=== PATIENT | female | born 1950 | race Caucasian/White ===

== ENCOUNTER 2016-08-29 06:48 | Emergency (ER) | payer OTHER ==
[~2016-08-29] VITALS: Ht 185.4 cm; Wt 75.8 kg
[~2016-08-29 06:48] MED LIST: ACIDOPHILUS1 EAC4 PO; APAP500 PO; CAYENNE450 MG PO; CIPRO500 M1 PO; CLARITIN10 MG PO; CURCUMIN1 GM PO; FLAGYL500 MG PO; FLONASE 0.05%50 MCG NASAL; GARLIC1 EACH PO; HYDROCODON-ACE1 EAC7 PO; MAG-AL PLUS SUS30 ML PO; MELATIN3 MG PO; MELATONIN1 MG PO; MSM1000 MG PO; MULTIVITAMINS1 EAC7 PO; NORCO 5-325 TA1 EACH PO; PROBIOTIC1 EAC1 PO; PROTONIX40 M4 PO; REGLAN 5 MG TAB5 MG PO; SUDAFED 24-HOU240 MG PO; VITAMIN B COMP1 EACH PO; VITAMIN C1000 MG PO; ZOFRAN ODT4 MG DISSOLVE; [UNRECOGNIZED DRUG - OTHER] NASAL
[2016-08-29] MEDS ORDERED: TRAMADOL 50 MG50 MG PO (06:54)
[2016-08-29] MEDS ORDERED: NORCO 5-325 TA1 EACH PO (09:08)
== END 2016-08-29 09:35 | disposition home or self-care (01) ==
LOC: ER 06:48
DX: S52.501A Unspecified fracture of the lower end of right radius, initial encounter for closed fracture (principal); Z88.0 Allergy status to penicillin; Z88.1 Allergy status to other antibiotic agents; W00.1XXA Fall from stairs and steps due to ice and snow, initial encounter; Y93.9 Activity, unspecified; Y92.9 Unspecified place or not applicable; Y99.9 Unspecified external cause status

== ENCOUNTER → 2016-12-03 | Outpatient (CLI) | payer OTHER ==
[~2016-12-03] MED LIST changes: +TRAMADOL 50 MG50 MG PO
== END ==
LOC: ULTRA 14:55
DX: N13.30 Unspecified hydronephrosis (principal)

== ENCOUNTER 2017-03-14 20:44 | Inpatient (IN) | payer OTHER ==
[~2017-03-14] VITALS: Ht 185.4 cm; Wt 81.6 kg
--- NOTE | ~2017-03-14 | HC ---
[facility] [place] [address] CONSULTATION Name: DONTRELL GRAF Room #: 426-P ADM IN M.R.#: [id number] Admission: 03/14/17 Attend Phys: Romeo Cabral MD Discharge: Date of : 54 Report #: [id number] THIS REPORT FOR: //name// CC: Romeo LEOS The patient is well known to me from prior surgery being admitted for abdominal pain and possible bowel obstruction. HISTORY OF PRESENT ILLNESS: The patient is a 66-year-old who was doing well until night of admission on 03/14/2017. The patient developed acute onset of pain in the evening. This came on fairly soon after eating salad. Her grandfather also has been having abdominal problem with nausea and vomiting. The patient had a crampy pain, then vomited in the Emergency Room. The patient denies any fevers or chills and no difficulty urinating. The patient had a CT performed that suggested either partial or early bowel obstruction. The patient's white count is normal, ____ amylase is normal, liver function is normal, lactic acid is normal. The patient did have a complicated diverticulitis about a year ago that required colostomy. The patient had a large very bad inflammatory mass, which I thought at the time of surgery was tumor, but ended up being severe diverticulitis, this was in February. The patient's ____ ureter was aspirated during surgery and had to be repaired. The patient had a colostomy. Subsequently, the patient did have her colostomy closed with laparoscopic-assisted technique in July. She says she has been doing really well, no issues at all until night of admission. I reviewed the CT scan. PHYSICAL EXAMINATION: The patient does have moderate abdominal distention. She is not in acute distress. Abdomen has increased bowel sounds. NG tube is in place. Very rare bowel sounds. Abdominal scar without evidence of any hernia. No diffuse guarding, rigidity. IMPRESSION: The patient is a 66-year-old who is well known to me. She developed pain last night. This could be early bowel obstruction. There is family member who is sick and makes me kind of wonder if she has enteritis. ____ the obstruction is from adhesions or may be from bolus of food, it is difficult to determine. I do not see any bowel twisting on the CT scan. I do not think she has any compromised bowel. PLAN: I agree with the IV fluid, NG tube, and closed monitoring. We will order another KUB in the morning. Hoping that she does not have to have any surgery, I would give here time to see if this will resolve. By: 06 39 Casper Aceves MD /nt
--- NOTE | ~2017-03-14 | O ---
[facility] [place] [address] OPERATIVE REPORT Name: DONTRELL GRAF Room #: 426-P ADM IN M.R.#: [id number] Admission: 03/14/17 Attend Phys: Romeo Cabral MD Discharge: Date of : 54 Report #: [id number] THIS REPORT FOR: //name// CC: Romeo LEOS DATE OF SERVICE: 03/18/2017 PREOPERATIVE DIAGNOSIS: Small-bowel obstruction likely adhesion. POSTOPERATIVE DIAGNOSIS: Small-bowel obstruction secondary obstructing adhesive band in the right mid to upper abdomen. PROCEDURES PERFORMED: Laparoscopic lysis of adhesive band and release of small-bowel obstruction. SURGEON: Casper Aceves M.D. ANESTHESIA: General anesthesia. COMPLICATIONS: None. ESTIMATED BLOOD LOSS: 5 mL. DESCRIPTION OF PROCEDURE: With the patient under general anesthesia, a Heredia catheter was placed. Abdomen was prepped and draped in sterile fashion. The patient has a small laparoscopic cutdown port site just above the umbilicus decided to stay away from there made at just a little bit below the umbilicus on the right side. The reason is because of her severe diverticulitis and I was wanting to avoid the left abdomen. Actually, when I got down through the anterior fascia, rectus fascia was identified. This was opened, 0 Vicryl suture placed for retraction, muscle was spread. The posterior fascia was identified, grasped with hemostat and then opened. It was difficult to tell where the peritoneum was. There is a small abdominal fluid present. The posterior fascia was also sutured with 0 Vicryl. I decided to go ahead and put the scope through the opening and there was adhesion around this area inferior to it. There was adhesion superior to this adhesion but on the left side, the abdomen was actually fairly free. Two 5 mm trocars were then placed under visualization on the left side and a 5 mm scope was then used to look at the original port site where I could see the adhesive band to the small bowel. The bowel adhesion was divided. Superior band and also inferior adhesion was divided. Omentum was still stuck and there was still some fat adhesion inferiorly, which I left alone. Almost immediately, I can see that the bowel is tapering and being pinched and stuck down in the right side of the abdomen as the CT scan suggested when I reviewed with Dr. Finley. Looks like the site of transition and this was identified and noted to be true. There was a band that was adhesed here. [facility] [address] [place] [address] OPERATIVE REPORT Name: DONTRELL GRAF Room #: 426-P ADM IN M.R.#: [id number] Admission: 03/14/17 Attend Phys: Romeo Cabral MD Discharge: Date of : 54 Report #: [id number] one part of the band actually just inflammatory and was able to be free. The other side of the band was pretty stuck to the bowel. There was a segment of bowel that was pinched by this. Initially, this looked somewhat pale and this bowel was adhesed to another bowel that was more distal and I had to free this obstructed segment from the other one, so I can see the back side where the back side, the part that was not compromised by the band directly and when I lifted that part, the bowel was pretty healthy and did not have the impression that the other side did. With time, the bowel that was pale, also pinked up and I could see good active peristalsis distal to this area. Also further downstream, I could see the bowel moving around well and there is moderate adhesions down lower where the bowel to bowel adhesions, but the bowel and I did not see any further bands stuck anywhere. The irrigation was performed. There is a small amount of fluid in the abdomen by the liver. This was suctioned out. Minimal blood loss 5 mL at the most. The adhesive band that was divided was visualized and from the first part of the surgery and that looks fine, no bleeding and no injury of the bowel identified. CO2 was evacuated and trocars removed. The posterior sheath at the cutdown site was closed with 0 [id number]-[id number] x1. The anterior fascia was closed with [id number] 0 Vicryl x2. Skin was irrigated. Skin was closed with 5-0 PDS. By: 2214 Casper Aceves MD /nt
--- NOTE | ~2017-03-14 | EKG ---
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 : 1950 Requested By: Jena Bella Order Number: [id number] MD: Kunal Florence Measurements Intervals [place] Rate: 63 P: 30 VA: 228 QRS: -18 QRSD: 97 T: 61 QT: 421 QTc: 431 Interpretive Statements Sinus rhythm Prolonged VA interval Borderline left axis deviation Abnormal R-wave progression, early transition Compared to ECG 07/27/2016 08:13:45 First degree AV block now present Electronically Signed On 03-15-2017 8:56:54 CDT by Kunal Florence [email or web address] <ELECTRONICALLY SIGNED> By: Kunal Florence MD, FACC 03/15/17 0856 55 55 Kunal Florence MD, [facility] /EPI
[2017-03-14 21:44] LABS: ANION GAP 9 mmol/L (7-16); BUN 22 mg/dL (7-18); CALCIUM 9.3 mg/dL (8.5-10.1); CHLORIDE 103 mmol/L (98-107); CO2 27 mmol/L (21-32); CREATININE 0.9 mg/dL (0.6-1.0); GLUCOSE 115 mg/dL (74-106); POTASSIUM 4.5 mmol/L (3.5-5.1); SODIUM 139 mmol/L (136-145)
[2017-03-14 21:47] LABS: ABSOLUTE NEUTROPHILS 4.3 thou/uL (1.4-8.2); BASOPHILS 0.9 % (0.0-2.0); HEMATOCRIT 40.9 % (37.0-47.0); HEMOGLOBIN 13.9 gm/dL (12.0-15.0); LYMPHOCYTES 44.5 % (24.0-44.0); MCH 31.6 pg (26.0-34.0); MCV 92.9 fL (80.0-100.0); MONOCYTES 10.3 % (1.0-8.0); PLATELET COUNT 283 thou/uL (150-400); POLYS 42.3 % (36.0-66.0); RDW 13.5 % (10.5-14.5); WBC 10.3 thou/uL (4.0-11.0)
[2017-03-14 21:49] LABS: MANUAL DIFF NO
[2017-03-14 21:57] LABS: ALBUMIN 3.9 g/dL (3.4-5.0); ALKALINE PHOSPHATASE 87 U/L (46-116); DIRECT BILIRUBIN < 0.1 mg/dL (<0.1-0.3); SGOT 23 U/L (15-37); SGPT 36 U/L (30-65); TOTAL BILIRUBIN 0.3 mg/dL (<0.1-1.0); TOTAL PROTEIN 7.5 g/dL (6.4-8.2)
[2017-03-14 23:41] LABS: URINE BILIRUBIN NEGATIVE (Negative); URINE BLOOD TRACE (Negative); URINE COLOR YELLOW; URINE GLUCOSE-RANDOM* NEGATIVE (Negative); URINE KETONES NEGATIVE (Negative); URINE LEUKOCYTES-REFLEX TRACE (Negative); URINE PROTEIN (DIPSTICK) NEGATIVE (Negative); URINE SPECIFIC GRAVITY <= 1.005 (1.003-1.035); URINE UROBILINOGEN 0.2 E.U./dl (0.2-1.0)
[2017-03-15] VITALS: BP 115/66
[2017-03-15 00:30] VITALS: BP 130/80
[2017-03-15 02:50] VITALS: BP 159/94
[2017-03-15 10:01] VITALS: BP 131/77
[2017-03-15 16:17] VITALS: BP 140/85
[2017-03-15 20:55] VITALS: BP 109/64
[2017-03-16 04:10] VITALS: BP 131/79
[2017-03-16 06:55] LABS: HEMATOCRIT 37.1 % (37.0-47.0); HEMOGLOBIN 12.6 gm/dL (12.0-15.0); MCHC 34.1 g/dL (28.0-37.0); PLATELET COUNT 210 thou/uL (150-400); RBC 3.95 mil/uL (4.20-5.00); RDW 13.5 % (10.5-14.5); WBC 6.2 thou/uL (4.0-11.0)
[2017-03-16 06:57] LABS: MANUAL DIFF YES
[2017-03-16 07:13] LABS: ALBUMIN 3.3 g/dL (3.4-5.0); CALCIUM 8.4 mg/dL (8.5-10.1); CREATININE 0.8 mg/dL (0.6-1.0); POTASSIUM 4.1 mmol/L (3.5-5.1); TOTAL BILIRUBIN 0.7 mg/dL (<0.1-1.0); TOTAL PROTEIN 6.7 g/dL (6.4-8.2)
[2017-03-16 07:48] VITALS: BP 107/65
[2017-03-16 08:20] LABS: TOTAL CELL COUNT 100
[2017-03-16 16:45] VITALS: BP 131/83
[2017-03-16 19:57] VITALS: BP 131/89
[2017-03-17 04:07] VITALS: BP 110/59
[2017-03-17 06:25] LABS: HEMATOCRIT 34.7 % (37.0-47.0); HEMOGLOBIN 12.1 gm/dL (12.0-15.0); MCH 32.3 pg (26.0-34.0); MCV 92.3 fL (80.0-100.0); RBC 3.75 mil/uL (4.20-5.00)
[2017-03-17 06:34] LABS: CREATININE 0.6 mg/dL (0.6-1.0); POTASSIUM 3.5 mmol/L (3.5-5.1)
[2017-03-17 07:58] VITALS: BP 123/65
[2017-03-17 16:36] VITALS: BP 118/52
[2017-03-17 19:36] VITALS: BP 125/74
[2017-03-18 03:33] VITALS: BP 116/73
[2017-03-18 07:44] VITALS: BP 142/80
[2017-03-18 14:11] LABS: URINE BILIRUBIN 1+ (Negative); URINE BLOOD NEGATIVE (Negative); URINE COLOR YELLOW; URINE GLUCOSE-RANDOM* NEGATIVE (Negative); URINE KETONES TRACE (Negative); URINE NITRITE NEGATIVE (Negative); URINE PROTEIN (DIPSTICK) 2+ (Negative)
[2017-03-18 14:18] LABS: CASTS None Seen /LPF (None Seen); CRYSTALS None Seen /LPF (None Seen); ICTOTEST (BILI CONFIRMATORY) Negative (Negative); SQUAMOUS 0-3 Few /LPF (0-3)
[2017-03-18 14:19] LABS: URINE RBC 0-2 Rare /HPF (0-2)
[2017-03-18 21:36] VITALS: BP 103/64
[2017-03-18 21:51] VITALS: BP 98/62
[2017-03-18 22:06] VITALS: BP 93/60
[2017-03-18 23:29] VITALS: BP 100/66
[2017-03-19 03:30] VITALS: BP 94/51
[2017-03-19 05:43] LABS: HEMATOCRIT 33.8 % (37.0-47.0); HEMOGLOBIN 11.7 gm/dL (12.0-15.0); MCH 32.2 pg (26.0-34.0); MCHC 34.6 g/dL (28.0-37.0); MCV 92.9 fL (80.0-100.0); RBC 3.64 mil/uL (4.20-5.00); WBC 4.7 thou/uL (4.0-11.0)
[2017-03-19 06:05] LABS: ALBUMIN 2.7 g/dL (3.4-5.0); CREATININE 0.7 mg/dL (0.6-1.0); PHOSPHORUS 3.3 mg/dL (2.5-4.9); POTASSIUM 3.9 mmol/L (3.5-5.1); TOTAL BILIRUBIN 0.4 mg/dL (<0.1-1.0); TOTAL PROTEIN 6.4 g/dL (6.4-8.2)
[2017-03-19 07:52] VITALS: BP 103/67
[2017-03-19 15:44] VITALS: BP 94/64
[2017-03-19 20:09] VITALS: BP 121/76
[2017-03-20 04:00] VITALS: BP 96/65
[2017-03-20 04:09] LABS: ALBUMIN 2.7 g/dL (3.4-5.0); CALCIUM 8.1 mg/dL (8.5-10.1); CREATININE 0.5 mg/dL (0.6-1.0); POTASSIUM 3.5 mmol/L (3.5-5.1); TOTAL BILIRUBIN 0.2 mg/dL (<0.1-1.0)
[2017-03-20 04:11] LABS: PHOSPHORUS 3.1 mg/dL (2.5-4.9)
[2017-03-20 04:22] LABS: HEMATOCRIT 33.2 % (37.0-47.0); HEMOGLOBIN 11.4 gm/dL (12.0-15.0); MCH 32.2 pg (26.0-34.0); MCHC 34.3 g/dL (28.0-37.0); MCV 93.8 fL (80.0-100.0); PLATELET COUNT 199 thou/uL (150-400); RBC 3.54 mil/uL (4.20-5.00); WBC 5.4 thou/uL (4.0-11.0)
[2017-03-20 04:30] LABS: MANUAL DIFF YES
[2017-03-20 05:45] LABS: ABSOLUTE NEUTROPHILS 2.1 thou/uL (1.4-8.2); ANISOCYTOSIS SLIGHT; ATYPICAL LYMPHS 1 %; LARGE PLATELETS OCCASIONAL; TOTAL CELL COUNT 100
[2017-03-20 10:06] VITALS: BP 99/65
[2017-03-20 16:45] VITALS: BP 109/73
[2017-03-20 19:48] VITALS: BP 135/86
[2017-03-21 04:26] VITALS: BP 108/65
[2017-03-21 05:32] LABS: HEMATOCRIT 36.4 % (37.0-47.0); HEMOGLOBIN 12.4 gm/dL (12.0-15.0); MCH 31.5 pg (26.0-34.0); MCHC 34.1 g/dL (28.0-37.0); MCV 92.5 fL (80.0-100.0); RBC 3.94 mil/uL (4.20-5.00); RDW 12.9 % (10.5-14.5); WBC 7.3 thou/uL (4.0-11.0)
[2017-03-21 05:43] LABS: CALCIUM 8.8 mg/dL (8.5-10.1); CREATININE 0.6 mg/dL (0.6-1.0); PHOSPHORUS 3.9 mg/dL (2.5-4.9); POTASSIUM 3.7 mmol/L (3.5-5.1)
[2017-03-21 08:38] VITALS: BP 114/66
[2017-03-21 14:52] VITALS: BP 114/66
== END 2017-03-21 15:40 | disposition home or self-care (01) | DRG 336 ==
LOC: ER 20:44 → 4E 23:40 → EROBS 23:40 → 4E 03-15 00:07
PROVIDERS: Emergency Medicine; Family Medicine; Nurse Practitioner; Surgery
PROC: 3E0336Z Introduction of Nutritional Substance into Peripheral Vein, Percutaneous Approach (ICD-10-PCS; 2017-03-15)
PROC: 0DN84ZZ Release Small Intestine, Percutaneous Endoscopic Approach (ICD-10-PCS; principal; 2017-03-18)
DX: K56.5 Intestinal adhesions [bands] with obstruction (postinfection) (principal); E44.1 Mild protein-calorie malnutrition; N39.0 Urinary tract infection, site not specified; K57.90 Diverticulosis of intestine, part unspecified, without perforation or abscess without bleeding; Z90.49 Acquired absence of other specified parts of digestive tract; Z88.0 Allergy status to penicillin; Z88.1 Allergy status to other antibiotic agents; Z87.442 Personal history of urinary calculi; Z68.23 Body mass index [BMI] 23.0-23.9, adult; Z88.8 Allergy status to other drugs, medicaments and biological substances
CPT/HCPCS: 10084; 27000; 50101; 50249; 50411; 50455; 50555; 51489; 53065; 53307; 56462; 56526; 62110; 62900; 70005

== ENCOUNTER → 2017-10-24 | Outpatient (CLI) | payer OTHER | LOC: RAD 10:46 | DX: Z12.31 Encounter for screening mammogram for malignant neoplasm of breast (principal) ==

== ENCOUNTER → 2017-11-02 | Outpatient (CLI) | payer OTHER | LOC: RAD 01:16 | DX: N60.02 Solitary cyst of left breast (principal); R92.8 Other abnormal and inconclusive findings on diagnostic imaging of breast ==

== ENCOUNTER → 2018-11-13 | Outpatient (CLI) | payer OTHER | LOC: RAD 03:54 → BC 03:54 | DX: Z12.31 Encounter for screening mammogram for malignant neoplasm of breast (principal); M81.0 Age-related osteoporosis without current pathological fracture; M85.89 Other specified disorders of bone density and structure, multiple sites ==

== ENCOUNTER 2021-07-14 17:31 | Emergency (ER) | payer OTHER, MEDICARE ==
[~2021-07-14] VITALS: Ht 185.4 cm; Wt 81.7 kg
[2021-07-14 18:34] LABS: URINE BILIRUBIN NEGATIVE (Negative); URINE BLOOD TRACE (Negative); URINE CLARITY CLEAR; URINE COLOR YELLOW; URINE GLUCOSE-RANDOM* NEGATIVE (Negative); URINE KETONES NEGATIVE (Negative); URINE NITRITE-REFLEX NEGATIVE (Negative); URINE PROTEIN (DIPSTICK) NEGATIVE (Negative); URINE UROBILINOGEN 0.2 E.U./dl (0.2-1.0)
[2021-07-14 18:36] LABS: URINE LEUKOCYTES-REFLEX 3+ (Negative)
[2021-07-14 18:44] LABS: BACTERIA-REFLEX >30 Many /HPF (None Seen); CASTS None Seen /LPF (None Seen); CRYSTALS None Seen /LPF (None Seen); SQUAMOUS 4-10 Moderate /LPF (0-3); URINE RBC 1-2 Rare /HPF (NONE SEEN); URINE WBC-REFLEX >25 Many /HPF (0-5)
[2021-07-14 19:02] LABS: ABSOLUTE NEUTROPHILS 3.4 thou/uL (1.4-8.2); BASOPHILS 0.9 % (0.0-2.0); EOSINOPHILS 2.4 % (0.0-3.0); HEMATOCRIT 41.7 % (37.0-47.0); HEMOGLOBIN 14.1 gm/dL (12.0-15.0); LYMPHOCYTES 28.3 % (24.0-44.0); MCH 31.3 pg (26.0-34.0); MCHC 33.9 g/dL (28.0-37.0); MCV 92.4 fL (80.0-100.0); PLATELET COUNT 240 thou/uL (150-400); POLYS 56.4 % (36.0-66.0); RBC 4.52 mil/uL (4.20-5.00); RDW 13.1 % (10.5-14.5)
[2021-07-14 19:20] LABS: CALCIUM 8.9 mg/dL (8.5-10.1); CREATININE 0.8 mg/dL (0.6-1.0)
[2021-07-14] MEDS ORDERED: CYCLOBENZAPRINE5 MG PO (19:20)
[2021-07-14] MEDS ORDERED: ALLEGRA ALLERGY60 MG PO (19:20)
[2021-07-14] MEDS ORDERED: APAP W/CODEINE1 TA2 PO (19:38)
[2021-07-14] MEDS ORDERED: MACROBID 100 M100 M1 PO (19:38)
[2021-07-14 20:17] VITALS: BP 140/90
== END 2021-07-14 20:19 | disposition home or self-care (01) ==
LOC: ER 17:31
PROVIDERS: Emergency Medicine
DX: N39.0 Urinary tract infection, site not specified (principal); R10.12 Left upper quadrant pain; Z86.718 Personal history of other venous thrombosis and embolism; Z87.442 Personal history of urinary calculi; Z98.890 Other specified postprocedural states; Z79.899 Other long term (current) drug therapy; Z88.0 Allergy status to penicillin; Z88.5 Allergy status to narcotic agent; Z88.6 Allergy status to analgesic agent

== ENCOUNTER 2021-07-24 11:20 | Emergency (ER) | payer OTHER, MEDICARE ==
[~2021-07-24] VITALS: Ht 185.4 cm; Wt 81.7 kg
[~2021-07-24 11:20] MED LIST changes: +ALLEGRA ALLERGY60 MG PO; +APAP W/CODEINE1 TA2 PO; +CYCLOBENZAPRINE5 MG PO; +MACROBID 100 M100 M1 PO
[2021-07-24 11:25] VITALS: BP 126/69
[2021-07-24 12:30] LABS: URINE BILIRUBIN NEGATIVE (Negative); URINE BLOOD 1+ (Negative); URINE CLARITY CLOUDY; URINE COLOR YELLOW; URINE GLUCOSE-RANDOM* NEGATIVE (Negative); URINE KETONES NEGATIVE (Negative); URINE PROTEIN (DIPSTICK) NEGATIVE (Negative); URINE SPECIFIC GRAVITY 1.015 (1.005-1.035); URINE UROBILINOGEN 0.2 E.U./dl (0.2-1.0)
[2021-07-24 12:33] LABS: URINE LEUKOCYTES-REFLEX 3+ (Negative); URINE NITRITE-REFLEX POSITIVE (Negative)
[2021-07-24 12:36] LABS: CALCIUM 8.4 mg/dL (8.5-10.1); CREATININE 0.8 mg/dL (0.6-1.0); POTASSIUM 3.8 mmol/L (3.5-5.1)
[2021-07-24 12:44] LABS: ALBUMIN 3.5 g/dL (3.4-5.0); TOTAL BILIRUBIN 0.3 mg/dL (0.2-1.0); TOTAL PROTEIN 7.4 g/dL (6.4-8.2)
[2021-07-24] MEDS ORDERED: TESSALON PERLE100 MG PO (13:13)
[2021-07-24] MEDS ORDERED: MACROBID 100 M100 M1 PO (13:13)
[2021-07-24] MEDS ORDERED: MEDROLDOSEPACK PO (13:13)
[2021-07-24] MEDS ORDERED: PROAIR HFA8.5 GM INH (13:18)
[2021-07-24] MEDS ORDERED: ACCUNEB SO1.25 MG/1 INH (13:18)
[2021-07-24 13:28] LABS: CASTS None Seen /LPF (None Seen); SQUAMOUS 0-3 Few /LPF (0-3)
[2021-07-24 13:29] LABS: BACTERIA-REFLEX >30 Many /HPF (None Seen); CRYSTALS None Seen /LPF (None Seen); URINE RBC 1-2 Rare /HPF (NONE SEEN); URINE WBC-REFLEX >25 Many /HPF (0-5); WBC CLUMPS Few (None Seen)
--- NOTE | 2021-07-25 11:54 | EKG ---
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 : 1950 Requested By: Jonatan Campbell Order Number: [id number] MD: Kunal Florence Measurements Intervals [place] Rate: 94 P: 56 GA: 163 QRS: -40 QRSD: 91 T: 67 QT: 312 QTc: 391 Interpretive Statements Sinus tachycardia Atrial premature complex Left axis deviation Compared to ECG 03/14/2017 20:56:51 Atrial premature complex(es) now present First degree AV block no longer present Electronically Signed On 07-25-2021 11:53:59 [address] MANAGER by Kunal Florence [email or web address] <ELECTRONICALLY SIGNED> By: Kunal Florence MD, [facility] 07/25/21 1153 31 31 Kunal Florence MD, FAC /EPI
== END 2021-07-24 13:13 | disposition home or self-care (01) ==
LOC: ER 11:20
PROVIDERS: Emergency Medicine; Nurse Practitioner
DX: U07.1 COVID-19 (principal); R05.9 Cough, unspecified; N39.0 Urinary tract infection, site not specified; Z91.09 Other allergy status, other than to drugs and biological substances; Z86.718 Personal history of other venous thrombosis and embolism; Z87.442 Personal history of urinary calculi; Z98.890 Other specified postprocedural states; Z79.899 Other long term (current) drug therapy; Z88.6 Allergy status to analgesic agent; Z88.0 Allergy status to penicillin; Z88.8 Allergy status to other drugs, medicaments and biological substances

== ENCOUNTER 2021-07-26 18:54 | Inpatient (IN) | payer OTHER, MEDICARE ==
[~2021-07-26] VITALS: Ht 185.4 cm; Wt 81.6 kg
[~2021-07-26 18:54] MED LIST changes: +ACCUNEB SO1.25 MG/1 INH; +MEDROLDOSEPACK PO; +PROAIR HFA8.5 GM INH; +TESSALON PERLE100 MG PO
[2021-07-26 19:05] VITALS: BP 113/67
[2021-07-26 20:08] LABS: URINE BILIRUBIN NEGATIVE (Negative); URINE BLOOD NEGATIVE (Negative); URINE CLARITY CLEAR; URINE COLOR YELLOW; URINE GLUCOSE-RANDOM* NEGATIVE (Negative); URINE KETONES NEGATIVE (Negative); URINE LEUKOCYTES-REFLEX NEGATIVE (Negative); URINE NITRITE-REFLEX NEGATIVE (Negative); URINE PROTEIN (DIPSTICK) NEGATIVE (Negative); URINE SPECIFIC GRAVITY <= 1.005 (1.005-1.035); URINE UROBILINOGEN 0.2 E.U./dl (0.2-1.0)
[2021-07-26 22:53] LABS: ABSOLUTE NEUTROPHILS 5.1 thou/uL (1.4-8.2); BASOPHILS 0.3 % (0.0-2.0); HEMATOCRIT 40.6 % (37.0-47.0); LYMPHOCYTES 5.7 % (24.0-44.0); MCHC 34.4 g/dL (28.0-37.0); MONOCYTES 10.5 % (1.0-8.0); PLATELET COUNT 200 thou/uL (150-400); POLYS 83.5 % (36.0-66.0); RBC 4.51 mil/uL (4.20-5.00); RDW 13.2 % (10.5-14.5); WBC 6.2 thou/uL (4.0-11.0)
[2021-07-26 23:03] LABS: CALCIUM 8.3 mg/dL (8.5-10.1); CREATININE 0.7 mg/dL (0.6-1.0); POTASSIUM 3.8 mmol/L (3.5-5.1)
[2021-07-26 23:19] LABS: ALBUMIN 3.2 g/dL (3.4-5.0); TOTAL BILIRUBIN 0.4 mg/dL (0.2-1.0); TOTAL PROTEIN 7.1 g/dL (6.4-8.2)
--- NOTE | 2021-07-27 07:39 | EKG ---
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 : 1950 Requested By: Taras Choudhury Order Number: [id number] MD: Gigi Lopez Measurements Intervals [place] Rate: 101 P: 21 [place]: 167 QRS: -38 QRSD: 89 T: 57 QT: 339 QTc: 440 Interpretive Statements Sinus tachycardia Left axis deviation Baseline wander in lead(s) V2 Compared to ECG 07/24/2021 11:32:29 Atrial premature complex(es) no longer present Electronically Signed On 07-27-2021 7:39:26 HEALTH CAREERS INSTRUCTOR by Gigi Lopez [email or web address] <ELECTRONICALLY SIGNED> By: Gigi Lopez MD, [facility] 07/27/21 0739 15 15 Gigi Lopez MD, [facility] /EPI
--- NOTE | 2021-07-27 17:07 | NUR ---
71-year-old female presented to the ED on 07/26/21 for concerns of intake, urinary tract infection might be getting worse. The patient was recently diagnosed with a urinary tract infection and outpatient and has completed a full course of Macrobid. The patient was also diagnosed with COVID-19 pneumonia on 07/18/2021 and has had worsening shortness of breath and cough. The patient has been admitted for Acute Hypoxic Respiratory Failure, Pneumonia and hx of Covid 19. The daughter Riya reports that her mother has not been vaccinated. Although listed per assessment as A&O x4, the patient's daughter is listed as next of kin of Riya Qureshi at [phone]. Currently lives with independent with her current S/O Yves Osuna where she is fully independent and walks up to 3 miles per day per the daughter. Explained CM role and that CM will follow for discharge needs.
[2021-07-27 21:32] VITALS: BP 107/63
[2021-07-28 07:12] VITALS: BP 127/72
[2021-07-28] MEDS ORDERED: LEVOFLOXACIN500 MG PO (11:42)
[2021-07-28] MEDS ORDERED: VITAMIN D3250 MCG PO (11:42)
[2021-07-28] MEDS ORDERED: PREDNISONE 20 M20 M1 PO (11:42)
--- NOTE | 2021-07-28 12:21 | NUR ---
RT ARRIVES AT BEDSIDE FOR BREATHING TX
[2021-07-28 14:55] VITALS: BP 112/64
--- NOTE | 2021-07-28 16:59 | NUR ---
SPOKE TO RT AND PATIENT FAILED HER AMBULATORY SAT TEST. SAT DROPPED TO 79% AND RECOVERY WAS DELAYED. NOTIFIED DR LIMON AND DISCHARGE ORDER CANCELLED.
[2021-07-28 17:34] VITALS: BP 112/64
--- NOTE | 2021-07-28 18:49 | NUR ---
END OF SHIFT NOTE: PT ALERT AND ORIENTED. TOLERATING NC AT 5L, DYSPENEA NOTED WITH EXERTION AND PT IS SLOW TO RECOVER. OTHERWISE SAT CONSISTENTLY 94-96%. PRODUCTIVE COUGH NOTED. SR ON MONITOR.
[2021-07-28 20:37] VITALS: BP 112/64
[2021-07-29] VITALS: BP 108/69
[2021-07-29 07:42] VITALS: BP 126/73
[2021-07-29 15:43] LABS: ABSOLUTE NEUTROPHILS 3.9 thou/uL (1.4-8.2); BASOPHILS 0.2 % (0.0-2.0); EOSINOPHILS 0.1 % (0.0-3.0); HEMATOCRIT 39.9 % (37.0-47.0); HEMOGLOBIN 13.4 gm/dL (12.0-15.0); LYMPHOCYTES 14.3 % (24.0-44.0); MCH 30.5 pg (26.0-34.0); MCHC 33.5 g/dL (28.0-37.0); MCV 91.1 fL (80.0-100.0); MONOCYTES 13.1 % (1.0-8.0); POLYS 72.3 % (36.0-66.0); RBC 4.38 mil/uL (4.20-5.00); RDW 13.4 % (10.5-14.5); WBC 5.4 thou/uL (4.0-11.0)
[2021-07-29 15:48] LABS: PLATELET COUNT 296 thou/uL (150-400)
[2021-07-29 15:54] LABS: CALCIUM 8.2 mg/dL (8.5-10.1); CREATININE 0.6 mg/dL (0.6-1.0)
[2021-07-29 15:56] VITALS: BP 121/81
[2021-07-29 16:15] VITALS: BP 121/81
--- NOTE | 2021-07-29 16:49 | NUR ---
Pt dcing home today with orders for hh and o2. Discussed with pt via her cell phone [phone] and her sign other Yves at [phone] (home#). He is positive as well as states he's feeling better and started on ivermectin. He will be picking the pt up in the ER drive through this evening once Monse has delievered the concentrater and portable system to their home. Pt denies preference for dme or hh agency and has not had any hh since 2016. [facility] and they can accept covid+ pt in the [place] area. Pt's pcp is Dr. Madai Ramos. Pt and sign other are unvaccinated. Pt instructed per the attending to return to the hospital if she starts feeling worse. Pt is a&ox4 and reports she is normally indep with all activity and gait. Unit RN updated. She is to call spouse to remind him to bring 2 portable tanks as it is a long drive from here to [place] and to call in the ER [address] and they will bring the pt out to the car. HH orders faxed and confirmed with [facility]. O2 script and clinical faxed to [facility]. Their regional company truck driver is on his way to the home at this time.
[2021-07-29 17:30] VITALS: BP 132/76
== END 2021-07-29 17:30 | disposition home health service (06) | DRG 177 ==
LOC: ER 18:54 → EROBS 07-27 00:12
PROVIDERS: Hospitalist; Nurse Practitioner; ADMIT Hospitalist; ATTEND Hospitalist
DX: U07.1 COVID-19 (principal); J96.01 Acute respiratory failure with hypoxia; J12.82 Pneumonia due to coronavirus disease 2019; E46 Unspecified protein-calorie malnutrition; Z87.442 Personal history of urinary calculi; Z93.3 Colostomy status; Z87.81 Personal history of (healed) traumatic fracture; Z88.0 Allergy status to penicillin; Z88.8 Allergy status to other drugs, medicaments and biological substances; Z83.3 Family history of diabetes mellitus; Z80.41 Family history of malignant neoplasm of ovary; Z68.23 Body mass index [BMI] 23.0-23.9, adult; Z79.899 Other long term (current) drug therapy